=== PATIENT | female | born 1970 | race Caucasian/White ===

== ENCOUNTER 2016-08-03 11:31 | Emergency (ER) | payer MEDICAID ==
[~2016-08-03] VITALS: Ht 172.7 cm; Wt 63.5 kg
[2016-08-03 11:38] VITALS: BP 127/69
[2016-08-03] MEDS: cefTRIAXone SOD 1,000 MG VL IM ONE (12:50)
[2016-08-03] MEDS: KETOROLAC TROMETH 60MG/2ML VIAL IM ONE (12:50)
== END 2016-08-03 13:14 | disposition home or self-care (01) ==
LOC: ER 11:31
DX: K04.7 Periapical abscess without sinus (principal); F17.210 Nicotine dependence, cigarettes, uncomplicated; Z88.1 Allergy status to other antibiotic agents
CPT/HCPCS: 41800; 96372; 99284; J0696; J1885